=== PATIENT | female | born 1985 | race Caucasian/White ===

== ENCOUNTER 2017-03-07 09:36 | Emergency (ER) | payer MEDICAID, OTHER ==
[2017-03-07] MEDS ORDERED: Ondansetron 4 MG/2 ML SDV IV ONE (10:17)
[2017-03-07] MEDS ORDERED: Sodium Chloride 0.9% 1,000 ML IV ONE (10:17)
--- NOTE | 2017-03-07 10:25 | EDM.PDOC ---
ED HPI GENERAL MEDICAL PROBLEM - General Chief Complaint: Abdominal Pain Stated Complaint: STOMACH PAIN FEELS LIKE PASSING OUT [id number] Time Seen by Provider: 03/07/17 10:10 Source of Information: Reports: Patient History Limitations: Reports: No Limitations - History of Present Illness INITIAL COMMENTS - FREE TEXT/NARRATIVE: This 31 yo female patient reports to the ED with right upper quadrant abdominal pain. The patient reports her pain started at about 0430 this morning. The patient also reports she feels nauseated. The patient reports no previous similar episodes. The patient reports she attempted to take Jessica-Selzer, but vomited after taking the medication. The patient reports she ate subway last night (6 inch sub at about 6pm another 6 inch sub at about 10) and some Pringles at about 0200. The patient currently rates her pain at an 8-9/10 in the right upper quadrant. 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 [No Known Home Meds] 09/18/13 [History] Past Medical History - Past Health History Medical/Surgical History: Denies Medical/Surgical History - Past Surgical History Musculoskeletal Surgical History: Reports: Arthroscopic Knee Social & Family History - Family History Family Medical History: Noncontributory - Tobacco Use Smoking Status *Q: Current Every Day Smoker Years of Tobacco use: 11 Packs/Tins Daily: 1 Second Hand Smoke Exposure: Yes - Caffeine Use Caffeine Use: Reports: None - Alcohol Use Days Per Week of Alcohol Use: 0 - Recreational Drug Use Recreational Drug Use: No - Living Situation & Occupation Living situation: Reports: with Family ED ROS GENERAL - Review of Systems Review Of Systems: ROS reveals no pertinent complaints other than HPI. ED EXAM, GI/ABD - Physical Exam Exam: See Below Exam Limited By: No Limitations General Appearance: Alert, WD/WN, Severe Distress, Obese Eyes: Bilateral: Normal Appearance, EOMI Ears: Normal External Exam, Normal Canal, Hearing Grossly Normal, Normal TMs Nose: Normal Inspection, Normal Mucosa, No Blood Throat/Mouth: Normal Inspection, Normal Lips, Normal Teeth, Normal Gums, Normal Oropharynx, Normal Voice, No Airway Compromise Head: Atraumatic, Normocephalic Neck: Normal Inspection, Supple, Non-Tender, Full Range of Motion Respiratory/Chest: No Respiratory Distress, Lungs Clear, Normal Breath Sounds, No Accessory Muscle Use, Chest Non-Tender Cardiovascular: Normal Peripheral Pulses, Regular Rate, Rhythm, No Edema, No Gallop, No JVD, No Murmur, No Rub GI/Abdominal Exam: Normal Bowel Sounds, No Organomegaly, No Distention, No Abnormal Bruit, No Mass, Pelvis Stable, Guarding, Tender (RUQ), Other (obese) (Female) Exam: Deferred Rectal (Female) Exam: Deferred Back Exam: Normal Inspection, Full Range of Motion, NT Extremities: Normal Inspection, Normal Range of Motion, Non-Tender, Normal Capillary Refill, No Pedal Edema Neurological: Alert, Oriented, CN II-XII Intact, Normal Cognition, Normal Gait, Normal Reflexes, No Motor/Sensory Deficits Psychiatric: Normal Affect, Normal Mood Skin Exam: Warm, Dry, Intact, Normal Color, No Rash Lymphatic: No Adenopathy Course - Vital Signs Last Recorded V/S: Last Vital Signs Temp 36.4 C 03/07/17 09:44 Pulse 54 L 03/07/17 09:44 Resp 22 H 03/07/17 09:44 BP 143/97 H 03/07/17 09:44 Pulse Ox 100 03/07/17 09:44 - Orders/Labs/Meds Orders: Active Orders 24 hr Category Date Time Status CULTURE BLOOD [BC] Stat Lab 03/07/17 10:01 Received CULTURE BLOOD [BC] Stat Lab 03/07/17 10:32 Results Blood Culture x2 Reflex Set [OM.PC] Stat Oth 03/07/17 09:48 Ordered Labs: Laboratory Tests 10/03/07/17 03/07/17 Range/Units 10:01 10:01 10:01 WBC 11.6 H (5.0-10.0) 10^3/uL RBC 5.04 (4.2-5.4) 10^6/uL Hgb 13.5 (12.0-16.0) g/dL Hct 40.6 (37.0-47.0) % MCV 80.6 (80-100) fL MCH 26.8 L (27.0-34.0) pg MCHC 33.3 (33.0-35.0) g/dL Plt Count 289 (150-450) 10^3/uL Neut % (Auto) 85.2 H (42.2-75.2) % Lymph % (Auto) 8.6 L (20.5-50.1) % [facility] % (Auto) 5.8 (2-8) % Eos % (Auto) 0.2 L (1.0-3.0) % Baso % (Auto) 0.2 (0.0-1.0) % Sodium 136 (135-145) mmol/L Potassium 3.6 (3.6-5.0) mmol/L Chloride 101 (101-111) mmol/L Carbon Dioxide 20.0 L (21.0-31.0) mmol/L Anion Gap 18.6 BUN 11 (7-18) mg/dL Creatinine 0.6 (0.6-1.3) mg/dL Est Cr Clr Drug Dosing 139.56 mL/min Estimated GFR (MDRD) > 60 BUN/Creatinine Ratio 18.33 Glucose 138 H (74-105) mg/dL Lactic Acid 1.9 (0.5-2.2) mmol/L Calcium 9.5 (8.4-10.2) mg/dl Magnesium 1.8 (1.8-2.5) mg/dL Total Bilirubin 0.7 (0.2-1.0) mg/dL AST 29 (10-42) IU/L ALT 36 (10-60) IU/L Alkaline Phosphatase 122 H (42-121) IU/L Total Protein 7.8 (6.7-8.2) g/dl Albumin 4.3 (3.2-5.5) g/dl Globulin 3.5 Albumin/Globulin Ratio 1.23 Amylase 32 (28-100) U/L Lipase 16 L (22-51) U/L HCG, Qual Negative Urine Color (YELLOW) Urine Appearance (CLEAR) Urine pH (5.0-9.0) Ur Specific [place] (1.005-1.030) Urine Protein (NEGATIVE) Urine Glucose (UA) (NEGATIVE) Urine Ketones (NEGATIVE) Urine Occult Blood (NEGATIVE) Urine Nitrite (NEGATIVE) Urine Bilirubin (NEGATIVE) Urine Urobilinogen (0.2-1.0) mg/dL Ur Leukocyte Esterase (NEGATIVE) Urine RBC /HPF Urine WBC (0-5/HPF) /HPF Ur Epithelial Cells /HPF Urine Bacteria (0-FEW/HPF) /HPF Urine Mucus /LPF Salicylates < 4 Urine Opiates Screen (NEGATIVE) Ur Oxycodone Screen (NEGATIVE) Urine Methadone Screen (NEGATIVE) Acetaminophen < 10 Ur Barbiturates Screen (NEGATIVE) U Tricyclic Antidepress (NEGATIVE) Ur Phencyclidine Scrn (NEGATIVE) Ur Amphetamine Screen (NEGATIVE) U Methamphetamines Scrn (NEGATIVE) Urine MDMA Screen (NEGATIVE) U Benzodiazepines Scrn (NEGATIVE) Urine Cocaine Screen (NEGATIVE) U Marijuana (THC) Screen (NEGATIVE) Ethyl Alcohol < 5 mg/dL 03/07/17 03/07/17 Range/Units 10:10 10:10 WBC (5.0-10.0) 10^3/uL RBC (4.2-5.4) 10^6/uL Hgb (12.0-16.0) g/dL Hct (37.0-47.0) % MCV (80-100) fL MCH (27.0-34.0) pg MCHC (33.0-35.0) g/dL Plt Count (150-450) 10^3/uL Neut % (Auto) (42.2-75.2) % Lymph % (Auto) (20.5-50.1) % [facility] % (Auto) (2-8) % Eos % (Auto) (1.0-3.0) % Baso % (Auto) (0.0-1.0) % Sodium (135-145) mmol/L Potassium (3.6-5.0) mmol/L Chloride (101-111) mmol/L Carbon Dioxide (21.0-31.0) mmol/L Anion Gap BUN (7-18) mg/dL Creatinine (0.6-1.3) mg/dL Est Cr Clr Drug Dosing mL/min Estimated GFR (MDRD) BUN/Creatinine Ratio Glucose (74-105) mg/dL Lactic Acid (0.5-2.2) mmol/L Calcium (8.4-10.2) mg/dl Magnesium (1.8-2.5) mg/dL Total Bilirubin (0.2-1.0) mg/dL AST (10-42) IU/L ALT (10-60) IU/L Alkaline Phosphatase (42-121) IU/L Total Protein (6.7-8.2) g/dl Albumin (3.2-5.5) g/dl Globulin Albumin/Globulin Ratio Amylase (28-100) U/L Lipase (22-51) U/L HCG, Qual Urine Color Yellow (YELLOW) Urine Appearance Clear (CLEAR) Urine pH 8.5 (5.0-9.0) Ur Specific [place] 1.020 (1.005-1.030) Urine Protein Trace H (NEGATIVE) Urine Glucose (UA) Negative (NEGATIVE) Urine Ketones 80 H (NEGATIVE) Urine Occult Blood Trace-lysed H (NEGATIVE) Urine Nitrite Negative (NEGATIVE) Urine Bilirubin Small H (NEGATIVE) Urine Urobilinogen 1.0 (0.2-1.0) mg/dL Ur Leukocyte Esterase Negative (NEGATIVE) Urine RBC 0-5 /HPF Urine WBC 0-5 (0-5/HPF) /HPF Ur Epithelial Cells Many H /HPF Urine Bacteria Moderate H (0-FEW/HPF) /HPF Urine Mucus Many H /LPF Salicylates Urine Opiates Screen Negative (NEGATIVE) Ur Oxycodone Screen Negative (NEGATIVE) Urine Methadone Screen Negative (NEGATIVE) Acetaminophen Ur Barbiturates Screen Negative (NEGATIVE) U Tricyclic Antidepress Negative (NEGATIVE) Ur Phencyclidine Scrn Negative (NEGATIVE) Ur Amphetamine Screen Negative (NEGATIVE) U Methamphetamines Scrn Negative (NEGATIVE) Urine MDMA Screen Negative (NEGATIVE) U Benzodiazepines Scrn Negative (NEGATIVE) Urine Cocaine Screen Negative (NEGATIVE) U Marijuana (THC) Screen Negative (NEGATIVE) Ethyl Alcohol mg/dL Meds: Medications Discontinued Medications Generic Name Dose Route Start Last Admin Trade Name Freq PRN Reason Stop Dose Admin Hydromorphone HCl 0.5 mg 03/07/17 10:56 03/07/17 11:02 Dilaudid IVPUSH 03/07/17 10:57 0.5 mg ONETIME ONE Administration Sodium Chloride 1,000 mls @ 999 mls/hr 03/07/17 10:17 03/07/17 10:23 Normal Saline IV 03/07/17 11:17 999 mls/hr .BOLUS ONE Administration Ondansetron HCl 4 mg 03/07/17 10:17 03/07/17 10:26 Zofran IV 03/07/17 10:18 4 mg ONETIME ONE Administration Departure - Departure Time of Disposition: 11:55 Disposition: Home, Self-Care 01 Condition: Fair Clinical Impression: Cholelithiasis Qualifiers: Cholelithiasis location: gallbladder Cholecystitis presence: without cholecystitis Biliary obstruction: without biliary obstruction Qualified Code(s) : K80.20 - Calculus of gallbladder without cholecystitis without obstruction - Discharge Information Instructions: Cholelithiasis, [id number] Forms: ED Department Discharge Care Plan Goals: The patient was advised of the examination, lab and ultrasound results during the visit. The patient was given pain medications while in the ED. The patient was encouraged to stick to a low fat diet. The patient should follow-up with her primary care facility for a possible surgical consult. The patient was given a script for Tramadol (50 mg) #20 to take 1 by mouth every 6 hours as needed for pain. If the patient has any additional symptoms or concerns, the patient should follow-up with her primary care facility or return to the emergency department. - My Orders Last 24 Hours: My Active Orders 03/07/17 09:48 Blood Culture x2 Reflex Set [OM.PC] Stat 03/07/17 10:01 CULTURE BLOOD [BC] Stat 03/07/17 10:32 CULTURE BLOOD [BC] Stat - Assessment/Plan Last 24 Hours: My Active Orders 03/07/17 09:48 Blood Culture x2 Reflex Set [OM.PC] Stat 03/07/17 10:01 CULTURE BLOOD [BC] Stat 03/07/17 10:32 CULTURE BLOOD [BC] Stat
[2017-03-07 10:30] LABS: CHLORIDE,CL 101 mmol/L (101-111); SODIUM,NA 136 mmol/L (135-145)
[2017-03-07 10:35] LABS: ACETAMINOPHEN < 10
[2017-03-07] MEDS ORDERED: HYDROmorphone 1 MG/ML Syringe IVPUSH ONE ×2 (10:56→11:55)
--- NOTE | 2017-03-07 11:49 | US ---
Clinical history: 31-year-old female emergency Department with right upper quadrant pain, nausea, vom iting and elevated white blood cell count (11,600). Interpretation: Abnormal. Multiple mobile small dependent intraluminal echogenic "shadowing" gallstones with associated dense l ayering gallbladder "sludge" within the gallbladder, right upper quadrant. Uniformly thin wall without pericystic fluid or sign of fixed intraluminal mucosal wall mass or polyp . Homogeneous normal sono density of the liver where visualized but technically difficult exam (patient weighs 265 pounds). No discrete intrahepatic mass lesion or abnormal intra/extrahepatic biliary duct dilatation (common h epatic duct 4 mm and the common bile duct 4 mm diameter). Fractional visualization of the pancreas (gas). No ascites. CONCLUSION: Diseased gallbladder (cholelithiasis and sludge).
== END 2017-03-07 12:10 | disposition home or self-care (01) ==
LOC: DL.ED 09:36
DX: K80.20 Calculus of gallbladder without cholecystitis without obstruction (principal); F17.210 Nicotine dependence, cigarettes, uncomplicated; Z88.2 Allergy status to sulfonamides; Z88.1 Allergy status to other antibiotic agents
CPT/HCPCS: 36415; 76705; 80053; 80305; 81001; 82150; 83605; 83690; 83735; 84703; 85025; 87040; 96361; 96374; 96375; 96376; 99284; G0480; J1170; J2405; J7030

== ENCOUNTER 2023-08-14 04:54 | Inpatient (IN) | payer OTHER ==
[2023-08-14] MEDS ORDERED: Sodium Chloride 0.9% 10 ML Syringe FLUSH PRN ×2 (07:35→22:16)
[2023-08-14] MEDS ORDERED: Ondansetron 4 MG/2 ML SDV IVPUSH PRN (07:35)
[2023-08-14] MEDS ORDERED: Carboprost Tromethamine 250 MCG/1 ML Amp IM PRN ×2 (07:35→22:16)
[2023-08-14] MEDS ORDERED: Misoprostol 400 MCG (4 X 100 MCG TAB) RECTAL PRN ×2 (07:35→22:16)
[2023-08-14] MEDS ORDERED: Lidocaine 1% 30 ML SDV INJECT ONE (07:35)
[2023-08-14] MEDS ORDERED: fentaNYL 100 MCG/2 ML SDV IVPUSH PRN (07:35)
[2023-08-14] MEDS ORDERED: Acetaminophen 325 MG Tab PO PRN (07:35)
[2023-08-14] MEDS ORDERED: Tranexamic Acid 1,000 MG in Sodium Chloride 0.9% 100 ML IV PRN ×2 (07:35→22:16)
[2023-08-14] MEDS ORDERED: Methylergonovine 0.2 MG/1 ML Amp IM PRN (07:35)
[2023-08-14] MEDS: Lactated Ringers 1,000 ML IV ONE (08:10)
[2023-08-14 08:14] LABS: HEMATOCRIT 39.6 % (37.0-47.0); HEMOGLOBIN 13.7 g/dL (12.0-16.0); MEAN CORPUSCULAR HEMOGLOBIN 32.4 pg (27.0-34.0); MEAN CORPUSCULAR HGB CONC 34.6 g/dL (33.0-35.0); MEAN CORPUSCULAR VOLUME 93.6 fL (80-100); RED BLOOD CELL COUNT 4.23 10^6/uL (4.2-5.4); WHITE BLOOD CELL COUNT,WBC 10.6 10^3/uL (5.0-10.0)
[2023-08-14] MEDS: Oxytocin/Normal Saline 30 UNIT/500 ML BAG IV SCH (11:15)
[2023-08-14] MEDS: Lactated Ringers 1,000 ML IV SCH (13:12)
[2023-08-14] MEDS ORDERED: Bupivacaine 0.25% 10 ML SDV ONE (17:23)
[2023-08-14] MEDS ORDERED: fentaNYL 100 MCG/2 ML SDV ONE (17:23)
[2023-08-14] MEDS ORDERED: ePHEDrine 50 MG/ML SDV IVPUSH PRN (17:50)
[2023-08-14] MEDS ORDERED: Phenylephrine HCl In 0.9% NaCl 1 MG/10 ML Syringe IVPUSH PRN (17:50)
[2023-08-14] MEDS ORDERED: Ropivacaine 200 MG in Premix Bag 1 BAG EPIDUR SCH (18:00)
[2023-08-14] MEDS ORDERED: Witch Hazel Medicated Pads 100/Jar TOP PRN (22:16)
[2023-08-14] MEDS ORDERED: Simethicone 80 MG Tab.Chew PO PRN (22:16)
[2023-08-14] MEDS ORDERED: Ibuprofen 800 MG Tab PO PRN (22:16)
[2023-08-14] MEDS ORDERED: Oxytocin 10 Units/1 ML SDV IM PRN (22:16)
[2023-08-14] MEDS ORDERED: Docusate Sodium 100 MG Cap PO PRN (22:16)
[2023-08-14 22:44] LABS: AMPHETAMINES,URINE NEGATIVE (NEGATIVE); BARBITURATES,URINE NEGATIVE (NEGATIVE); BENZODIAZEPINE,URINE NEGATIVE (NEGATIVE); MDMA (ECSTASY), URINE NEGATIVE (NEGATIVE); METHADONE,URINE NEGATIVE (NEGATIVE); METHAMPHETAMINES,URINE NEGATIVE (NEGATIVE); OPIATES,URINE NEGATIVE (NEGATIVE); OXYCODONE,URINE NEGATIVE (NEGATIVE); PHENCYCLIDINE,URINE NEGATIVE (NEGATIVE); TCA,URINE NEGATIVE (NEGATIVE)
[2023-08-14] MEDS: Benzocaine/Menthol 20%-0.5% Spray 78 GM Cannister TOP PRN (23:34)
[2023-08-15] MEDS: Acetaminophen 325 MG Tab PO PRN (05:59)
[2023-08-15] MEDS: Prenatal Multivitamin with Calcium/Folic Acid/Iron Tab PO SCH (10:03)
== END 2023-08-15 09:50 | disposition home or self-care (01) | DRG 807 ==
LOC: DL.OB 07:55 → OBSVTOIN 21:24
PROVIDERS: ADMIT Family Medicine; ATTEND Family Medicine
PROC: 10E0XZZ Delivery of Products of Conception, External Approach (ICD-10-PCS; principal; 2023-08-14)
PROC: 10907ZC Drainage of Amniotic Fluid, Therapeutic from Products of Conception, Via Natural or Artificial Opening (ICD-10-PCS; 2023-08-14)
PROC: 0UQMXZZ Repair Vulva, External Approach (ICD-10-PCS; 2023-08-14)
PROC: 3E033VJ Introduction of Other Hormone into Peripheral Vein, Percutaneous Approach (ICD-10-PCS; 2023-08-14)
PROC: 3E0R3BZ Introduction of Anesthetic Agent into Spinal Canal, Percutaneous Approach (ICD-10-PCS; 2023-08-14)
PROC: 00HU33Z Insertion of Infusion Device into Spinal Canal, Percutaneous Approach (ICD-10-PCS; 2023-08-14)
PROC: 4A1 Measurement and Monitoring, Physiological Systems, Monitoring (ICD-10-PCS; 2023-08-14)
DX: O24.420 Gestational diabetes mellitus in childbirth, diet controlled (principal); Z37.0 Single live birth; O99.214 Obesity complicating childbirth; O12.14 Gestational proteinuria, complicating childbirth; O71.82 Other specified trauma to perineum and vulva; Z3A.40 40 weeks gestation of pregnancy
CPT/HCPCS: 36415; 59409; 80305-QW; 82947; 85027; A9270-GY; J2590; J7120